=== PATIENT | female | born 1985 | race Caucasian/White ===

== ENCOUNTER 2018-04-01 08:15 | Observation (INO) ==
--- NOTE | 2018-04-01 08:43 | ED ---
HPI General Chief Complaint: Abdominal Pain Stated Complaint: abd pain Time Seen by Provider: 04/01/18 08:32 Source: patient Mode of arrival: ambulatory Limitations: no limitations History of Present Illness HPI narrative: 32 y/o female states yesterday at 130 she developed pain around her right mid abdomen and bellybutton area. She states movement makes the pain worse. She denies other modifying factors. She denies recurrent history of this. She denies any associated symptoms or other concurrent complaints. Quality is aching. Severity is moderate. She states her last menstrual cycle was about 7 years ago as she is on the Depo-Provera shot. Related Data Home Medications Medication Instructions Recorded Confirmed bupropion HCl 450 mg PO QAM 04/01/18 04/01/18 medroxyprogesterone [Depo-Provera] 150 mg IM [id number] 04/01/18 04/01/18 valacyclovir [Valtrex] 1,000 mg PO DAILY PRN 04/01/18 04/01/18 Allergies Allergy/AdvReac Type Severity Reaction Status Date / Time No Known Allergies Allergy Unknown Verified 04/01/18 08:20 Review of Systems ROS: all other systems reviewed are negative PMFSH History History Provided By: Patient (Notes prior but denies other surgeries or medical history) Medical History Medical History Depression (Acute) HTN (hypertension) (Acute) Surgical History Surgical History History of (Acute) History of tonsillectomy and adenoidectomy (Acute) Social History Social History Substance History: No History of Abuse Smoking Status: Current some day smoker Tobacco Type: Cigarettes How Often Do You Have a Drink Containing Alcohol: 2 to 3 times a week Recent Travel in [facility] within the Last 8 Weeks: No Recent Out of Country Travel within the Last 8 Weeks: No Exam Narrative Exam Narrative: GENERAL: 32 y/o female in no apparent distress SKIN: Focused skin assessment warm/dry. HEAD: Atraumatic. Normocephalic. EYES: Pupils equal and round. No scleral icterus. No injection or drainage. ENT: No nasal bleeding or discharge. Mucous membranes pink and moist. NECK: Trachea midline. No JVD. CARDIOVASCULAR: Regular rate and rhythm. RESPIRATORY: No accessory muscle use. Clear to auscultation. Breath sounds equal bilaterally. GASTROINTESTINAL: Abdomen soft, ttp to mid right upper lateral abdomen, nondistended. MUSCULOSKELETAL: No obvious deformities. No clubbing. No cyanosis. No edema. NEUROLOGICAL: Awake and alert. Motor grossly within normal limits. Normal speech. PSYCHIATRIC: Appropriate mood and affect; insight and judgment normal. Course Reevaluation(s) Reevaluation #1: patient updated and agrees to admit, given zosyn Consultations Consultation #1: dr alexandre thru OR nurse states to admit to medicine and keep npo Consultation #2: dr doyle agrees to admit Initial Documented Vital Signs Temperature 98.3 F 04/01/18 08:20 Pulse Rate 89 04/01/18 08:20 Respiratory Rate 16 04/01/18 08:20 Blood Pressure 128/84 04/01/18 08:20 Pulse Oximetry 98 04/01/18 08:20 Last Documented Vital Signs Temperature 98.3 F 04/01/18 08:20 Pulse Rate 76 04/01/18 10:15 Respiratory Rate 16 04/01/18 10:15 Blood Pressure 116/81 04/01/18 10:15 Pulse Oximetry 98 04/01/18 10:15 Medical Decision Making [facility] Narrative Medical decision making narrative: Will check blood work, urinalysis, test, CT scan and reevaluate Medical Screen Exam Complete: Yes Emergency Medical Condition: Yes Differential Diagnosis Differential Diagnosis: Cholecystitis, gastritis, stone, appendicitis Lab Data Lab results reviewed: Yes I reviewed the patient's lab results. Result diagrams: 04/01/18 09:00 04/01/18 09:00 POC Results POC Urine Results Negative Lab Results 04/01/18 04/01/18 04/01/18 Range/Units 08:40 09:00 09:00 CBC w Diff Auto diff final WBC 6.3 (4.0-11.0) th/mm3 RBC 4.80 (4.00-5.30) mil/mm3 Hgb 15.2 (11.6-15.3) gm/dL Hct 44.4 (35.0-46.0) % MCV 92.7 (80.0-100.0) fL MCH 31.8 (27.0-34.0) pg MCHC 34.3 (32.0-36.0) % RDW 12.4 (11.6-17.2) % Plt Count 272 (150-450) th/mm3 MPV 9.4 (7.0-11.0) fL Neut % (Auto) 62.7 (16.0-70.0) % Lymph % (Auto) 27.2 (9.0-44.0) % [place] % (Auto) 7.5 (0.0-8.0) % Eos % (Auto) 1.8 (0.0-4.0) % Baso % (Auto) 0.8 (0.0-2.0) % Neut # (Auto) 3.9 (1.8-7.7) th/mm3 Lymph # (Auto) 1.7 (1.0-4.8) th/mm3 [place] # (Auto) 0.5 (0.0-0.9) th/mm3 Eos # (Auto) 0.1 (0.0-0.4) th/mm3 Baso # (Auto) 0.1 (0.0-0.2) th/mm3 WBC Differential . Differential Comment . Sodium 141 (136-145) meq/L Potassium 4.4 (3.5-5.1) meq/L Chloride 108 H (98-107) meq/L Carbon Dioxide 23.0 (21.0-32.0) meq/L Anion Gap 10 (5-15) meq/L BUN 5 L (7-18) mg/dL Creatinine 0.73 (0.50-1.00) mg/dL Estimated GFR Greater than 89 (>89) mL/min Random Glucose 90 (74-106) mg/dL Calcium 8.8 (8.5-10.1) mg/dL Magnesium 2.3 (1.5-2.5) mg/dL Total Bilirubin 0.7 (0.2-1.0) mg/dL AST 17 (15-37) U/L ALT 33 (10-53) U/L Alkaline Phosphatase 78 (45-117) U/L Total Protein 7.2 (6.4-8.2) g/dL Albumin 3.6 (3.4-5.0) g/dL Lipase 72 L (73-393) U/L Ur Collection Type Clean catch Urine Color Yellow (Yellw/Straw) Urine Clarity Slightly cloudy (Clear) Urine pH 8.0 (5.0-8.5) Ur Specific [place] 1.015 (1.002-1.035) Urine Protein Negative (Neg-Trace) mg/dL Urine Glucose (UA) Negative (Negative) mg/dL Urine Ketones Negative (Negative) mg/dL Urine Occult Blood Negative (Negative) Urine Nitrate Negative (Negative) Urine Bilirubin Negative (Negative) Urine Urobilinogen 0.2 (Less than 2) mg/dL Ur Leukocyte Esterase Negative (Negative) Ur Squamous Epith Cells 6-10 H (0-5) /hpf Ur Microscopic Review Microscopic reviewed Urine Culture Comments Culture not ind Urine Collection Time 840 hours Imaging Data Attestation: I personally reviewed and interpreted this imaging study as follows : Radiologist's impression: Abdomen/Pelvis CT 04/01/18 08:40 CONCLUSION: 1. Prominent appendix with very minimal inflammatory changes about the tip. This could represent early appendicitis. 2. Lack of intravenous contrast does limit the sensitivity of this exam. Discharge Plan Discharge Disposition Patient Disposition: 30 Still Patient Discharge Details Diagnosis: Acute appendicitis Physicians Team ED Provider: Yoli Ruiz Primary Care Provider: Winnie Dumont Attending Provider: Chaz Doyle Other Providers: Joshua Alexandre Discharge Interventions Interventions: Vital Signs Last Done: 04/01/18 10:15 Status ED Status: Admitted Observation Patient
[2018-04-01 09:10] LABS: Bilirubin,Urine Negative (Negative); Clarity,Urine Slightly Cloudy (Clear); Color,Urine Yellow (Yellw/Straw); Glucose,Urine (UA) Negative (Negative); Leukocyte Esterase,Urine Negative (Negative); Nitrite,Urine Negative (Negative); Specific Gravity,Urine 1.015 (1.002-1.035); Urobilinogen,Urine 0.2 mg/dL (Less than 2)
[2018-04-01 09:11] LABS: Collection Time,Urine 840 hours
[2018-04-01 09:17] LABS: Baso # (Auto) 0.1 th/mm3 (0.0-0.2); Baso % (Auto) 0.8 % (0.0-2.0); Eos # (Auto) 0.1 th/mm3 (0.0-0.4); Eos % (Auto) 1.8 % (0.0-4.0); Hematocrit 44.4 % (35.0-46.0); Hemoglobin 15.2 gm/dL (11.6-15.3); Lymph # (Auto) 1.7 th/mm3 (1.0-4.8); Lymph % (Auto) 27.2 % (9.0-44.0); Mean Corpuscular HGB Conc 34.3 % (32.0-36.0); Mean Corpuscular Hemoglobin 31.8 pg (27.0-34.0); Mean Corpuscular Volume 92.7 fL (80.0-100.0); Mean Platelet Volume 9.4 fL (7.0-11.0); Mono # (Auto) 0.5 th/mm3 (0.0-0.9); Mono % (Auto) 7.5 % (0.0-8.0); Neut # (Auto) 3.9 th/mm3 (1.8-7.7); Neut % (Auto) 62.7 % (16.0-70.0); Platelet Count 272 th/mm3 (150-450); Red Cell Distribution Width 12.4 % (11.6-17.2); White Blood Count 6.3 th/mm3 (4.0-11.0)
--- NOTE | 2018-04-01 09:26 | CT ---
EXAM DATE: 04/01/2018 9:19 AM EDT AGE/SEX: 32 years / Female INDICATIONS: Right mid abdominal and periumbilical pain. CLINICAL DATA: This is the patient's initial encounter. Patient reports that signs and symptoms have been present for 1 day and indicates a pain score of 7/10. MEDICAL/SURGICAL HISTORY: Hypertension. section. RADIATION DOSE: 25.01 CTDI (mGy) ; Patient body habitus COMPARISON: No prior exams available for comparison. TECHNIQUE: Multiple contiguous axial images were obtained through the abdomen. Images were obtained using multiple row detector helical technique. Using automated exposure control and adjustment of the mA and/or kV according to patient size, radiation dose was kept as low as reasonably achievable to o btain optimal diagnostic quality images. DICOM format image data is available electronically for rev iew and comparison. FINDINGS: Lower Lungs: The visualized lower lungs are clear. Liver: The liver has a homogeneous density without space-occupying lesion. There is no dilation of th e biliary tree. Spleen: Homogeneous density without enlargement. Pancreas: Unremarkable without mass or calcification. Kidneys: Normal in size and shape. No evidence of mass or hydronephrosis. Adrenal Glands: Unremarkable. Aorta: The aorta and proximal iliac vessels are grossly unremarkable without aneurysmal dilation. Bowel/Mesentery: There is a prominent appendix. Very minimal inflammatory changes about the tip. Abdo daljit Wall: Intact. Retroperitoneum: No evidence of adenopathy in the retrocrural, para-aortic, or deep pelvic regions. Bladder: Contours are smooth. Reproductive Organs: No abnormal masses or calcifications seen. Inguinal: The inguinal region is unremarkable without evidence of adenopathy. Bony Structures: Unremarkable. CONCLUSION: 1. Prominent appendix with very minimal inflammatory changes about the tip. This could represent ear ly appendicitis. 2. Lack of intravenous contrast does limit the sensitivity of this exam. Electronically signed by: Paulino Lim MD 04/01/2018 9:25 AM EDT
[2018-04-01] MEDS ORDERED: Morphine Inj 4 MG/ML Vial IV.PUSH ONE (10:01)
[2018-04-01 10:17] LABS: Calcium 8.8 mg/dL (8.5-10.1)
[2018-04-01 10:18] LABS: Albumin 3.6 g/dL (3.4-5.0); Anion Gap 10 meq/L (5-15); Chloride 108 meq/L (98-107); Glucose,Random 90 mg/dL (74-106); Lipase 72 U/L (73-393); Magnesium 2.3 mg/dL (1.5-2.5); Potassium 4.4 meq/L (3.5-5.1); Sodium 141 meq/L (136-145)
[2018-04-01 10:21] LABS: Aspartate Aminotransferase 17 U/L (15-37); Glomerular Filtration Rate Greater Than 89 mL/min (>89)
[2018-04-01 10:22] LABS: Total Protein 7.2 g/dL (6.4-8.2)
[2018-04-01 10:24] LABS: Alkaline Phosphatase 78 U/L (45-117)
[2018-04-01 10:30] LABS: Blood Urea Nitrogen 5 mg/dL (7-18)
[2018-04-01] MEDS ORDERED: Piperacil/Tazo 3.375 GM Premix 50 ML IV.SIG ONE (10:30)
[2018-04-01 10:32] LABS: Alanine Aminotransferase 33 U/L (10-53)
[2018-04-01] MEDS ORDERED: Bisacodyl 10 MG Supp RECTAL PRN (10:57)
[2018-04-01] MEDS ORDERED: Acetaminophen 325 MG Tablet PO PRN (10:57)
[2018-04-01] MEDS: Sod Chloride 0.9% Inj 1,000 ML IV.CONT SCH ×2 (11:15→21:44)
--- NOTE | 2018-04-01 12:14 | P.HP ---
History of Present Illness Primary Care Physician: Winnie Dumont MD Chief Complaint: Abdominal pain History of Present Illness: This is a pleasant 32-year-old female patient with a known medical history of migraines and hypertension who presented to the ED with complaints of right lower quadrant abdominal pain. Patient states that yesterday afternoon around 1330 she developed a midepigastric abdominal pain that radiated to her right lower abdomen. She states that pain was worse with activity and movement. She denies any associated shortness of breath, diaphoresis or nausea or vomiting. She denies any changes to her bowels. She denies any black or bloody stools. Admit to chills and a low-grade fever of 99.0 at home. Patient visited her primary care doctor yesterday for complaints of more frequent migraines. Yesterday her PCP diagnosed her mild hypertension, per patient her BP was systolic in the 120's in the office, she was started on an antihypertensive medication she cannot recall the name of. She did not start her antihypertensive due to feeling sick over the course of the night. At the time of assessment, patient is tearful, states that she has a headache, abdominal pain is controlled. BP is stable. General surgery has been consulted. - Diagnosis (1) Acute appendicitis (2) Migraine Review of Systems All other systems reviewed negative except as stated in HPI PMFSH - History History Provided By: Patient - Medical History Medical History: Medical History (Last Reviewed 04/01/18 @ 13:10 by Jamila Peace) Depression HTN (hypertension) - Surgical History Surgical History: Surgical History (Last Reviewed 04/01/18 @ 13:10 by Jamila Peace) History of History of tonsillectomy and adenoidectomy - Family History Family History: Family History (Last Updated 04/01/18 @ 13:10 by Jamila Peace) Other Family history non-contributory - Social History I have reviewed the patient's Social History: Yes - Tobacco History Second Hand Smoke Exposure: No Tobacco Use In Past 30 Days: Yes Smoking Status: Light tobacco smoker Tobacco Type: Cigars - Alcohol History How Often Do You Have a Drink Containing Alcohol: 2 to 3 times a week - Substance Use History Substance History: No History of Abuse - Travel History Recent Travel in the [place] Within the Last 8 Weeks: No Recent Travel Out of the Country Within the Last 8 Weeks: No - Immunization History Tetanus Immunization: <5 Years Tetanus Immunization Year if Known: 2016 Medications and Allergies Active Medications: Active Medications Acetaminophen (Tylenol) 650 mg PO Q4H PRN PRN Reason: Temp > 100.4 Al Hydroxide/Mg Hydroxide (Milk Of Magnesia Liq) 30 ml PO Q12H PRN PRN Reason: Mild Constipation Bisacodyl (Dulcolax Supp) 10 mg RECTAL DAILY PRN PRN Reason: SEVERE CONSITIPATION Sodium Chloride (Ns Inj) 1,000 mls @ 100 mls/hr IV.CONT .Q10H LIAT Last Admin: 04/01/18 11:15 Dose: 100 mls/hr Lactulose (Lactulose Liq) 30 ml PO DAILY PRN PRN Reason: SEVERE CONSITIPATION Ondansetron HCl (Zofran Inj) 4 mg IV.PUSH Q6H PRN PRN Reason: NAUSEA OR VOMITING Sennosides (Senokot) 17.2 mg PO Q12H PRN PRN Reason: Moderate Constipation Sodium Chloride (Ns Flush) 2 ml IV.FLUSH PRN PRN PRN Reason: FLUSH AFTER USING IV ACCESS Allergies Allergy/AdvReac Type Severity Reaction Status Date / Time No Known Allergies Allergy Unknown Verified 04/01/18 08:20 Home Medications Medication Instructions Recorded Confirmed Type bupropion HCl 450 mg PO QAM 04/01/18 04/01/18 History medroxyprogesterone [Depo-Provera] 150 mg IM [id number] 04/01/18 04/01/18 History valacyclovir [Valtrex] 1,000 mg PO DAILY PRN 04/01/18 04/01/18 History Exam Vital signs: Vital Signs 04/01/18 08:20 04/01/18 09:47 04/01/18 10:15 Temperature 98.3 F Pulse Rate 89 87 76 Respiratory Rate 16 16 16 Blood Pressure 128/84 140/106 H 116/81 Pulse Oximetry 98 96 98 04/01/18 11:30 Temperature Pulse Rate 71 Respiratory Rate 16 Blood Pressure 123/82 Pulse Oximetry 98 Intake & Output 03/31/18 04/01/18 04/01/18 18:59 06:59 18:59 Intake Total 50 / 50 Balance 50 / 50 Weight 125 kg Intake: IV 50 / 50 Zosyn 3.375 GM Premix 50 ML @ 50 / 50 100 mls/hr IV.SIG ONCE ONE Rx#: [id number] Narrative: GENERAL: Well-developed, well-nourished patient with complaints of frontal headache. SKIN: Warm and dry. No rash. HEAD: Normocephalic. Atraumatic. EYES: Pupils equal and round. No scleral icterus. No injection or drainage. ENT: No nasal bleeding or discharge. Mucous membranes pink and moist. NECK: Supple. Trachea midline. CARDIOVASCULAR: Regular rate and rhythm. S1, S2 noted. No murmur appreciated. RESPIRATORY: No accessory muscle use. Clear to auscultation. Breath sounds equal bilaterally. GASTROINTESTINAL: Abdomen soft, nondistended. Normoactive bowel sounds x4. Mild tenderness to right lower quadrant to palpation. MUSCULOSKELETAL: No obvious deformities. Extremities without clubbing, cyanosis , or edema. NEUROLOGICAL: Awake and alert. No obvious cranial nerve deficits. Motor grossly within normal limits. 5/5 muscle strength in bilateral upper and lower extremities. Normal speech. PSYCHIATRIC: Appropriate mood and affect; insight and judgment normal. Results - Labs CBC & Chem 7: 04/01/18 09:00 04/01/18 09:00 Labs: Laboratory Results - last 24 hr 04/01/18 04/01/18 04/01/18 08:40 09:00 09:00 CBC w Diff Auto diff final WBC 6.3 RBC 4.80 Hgb 15.2 Hct 44.4 MCV 92.7 MCH 31.8 MCHC 34.3 RDW 12.4 Plt Count 272 MPV 9.4 Neut % (Auto) 62.7 Lymph % (Auto) 27.2 [place] % (Auto) 7.5 Eos % (Auto) 1.8 Baso % (Auto) 0.8 Neut # (Auto) 3.9 Lymph # (Auto) 1.7 [place] # (Auto) 0.5 Eos # (Auto) 0.1 Baso # (Auto) 0.1 WBC Differential . Differential Comment . Sodium 141 Potassium 4.4 Chloride 108 H Carbon Dioxide 23.0 Anion Gap 10 BUN 5 L Creatinine 0.73 Estimated GFR Greater than 89 Random Glucose 90 Calcium 8.8 Magnesium 2.3 Total Bilirubin 0.7 AST 17 ALT 33 Alkaline Phosphatase 78 Total Protein 7.2 Albumin 3.6 Lipase 72 L Ur Collection Type Clean catch Urine Color Yellow Urine Clarity Slightly cloudy Urine pH 8.0 Ur Specific [place] 1.015 Urine Protein Negative Urine Glucose (UA) Negative Urine Ketones Negative Urine Occult Blood Negative Urine Nitrate Negative Urine Bilirubin Negative Urine Urobilinogen 0.2 Ur Leukocyte Esterase Negative Ur Squamous Epith Cells 6-10 H Ur Microscopic Review Microscopic reviewed Urine Culture Comments Culture not ind Urine Collection Time 840 - Imaging Impressions Abdomen/Pelvis CT 04/01/18 08:40 CONCLUSION: 1. Prominent appendix with very minimal inflammatory changes about the tip. This could represent early appendicitis. 2. Lack of intravenous contrast does limit the sensitivity of this exam. Caprini VTE Risk Assessment Caprini VTE Risk Assessment: No/Low Risk (score <= 1) Caprini Risk Assessment Model: Point Value = 1 Point Value = 2 Point Value = 3 Point Value = 5 Age 41-60 Minor surgery BMI > 25 kg/m2 Swollen legs Varicose veins or History of unexplained or recurrent spontaneous Oral contraceptives or hormone replacement Sepsis (< 1 month) Serious lung disease, including pneumonia (< 1 month) Abnormal pulmonary function Acute myocardial infarction Congestive heart failure (< 1 month) History of inflammatory bowel disease Medical patient at bed rest Age 61-74 Arthroscopic surgery Major open surgery (> 45 min) Laparoscopic surgery (> 45 min) Malignancy Confined to bed (> 72 hours) Immobilizing plaster cast Central venous access Age >= 75 History of VTE Family history of VTE Factor V Leiden Prothrombin [id number] Lupus anticoagulant Anticardiolipin antibodies Elevated serum homocysteine Heparin-induced thrombocytopenia Other congenital or acquired thrombophilia Stroke (< 1 month) Elective arthroplasty Hip, pelvis, or leg fracture Acute spinal cord injury (< 1 month) Prophylaxis Regimen: Total Risk Factor Score Risk Level Prophylaxis Regimen 0-1 Low Early ambulation 2 Moderate Order ONE of the following: *Sequential Compression Device (SCD) *Heparin 5000 units SQ BID 3-4 Higher Order ONE of the following medications: *Heparin 5000 units SQ TID *Enoxaparin/Lovenox 40 mg SQ daily (WT < 150 kg, CrCl > 30 mL/min) *Enoxaparin/Lovenox 30 mg SQ daily (WT < 150 kg, CrCl > 10-29 mL/min) *Enoxaparin/Lovenox 30 mg SQ BID (WT < 150 kg, CrCl > 30 mL/min) AND/OR *Sequential Compression Device (SCD) 5 or more Highest Order ONE of the following medications: *Heparin 5000 units SQ TID (Preferred with Epidurals) *Enoxaparin/Lovenox 40 mg SQ daily (WT < 150 kg, CrCl > 30 mL/min) *Enoxaparin/Lovenox 30 mg SQ daily (WT < 150 kg, CrCl > 10-29 mL/min) *Enoxaparin/Lovenox 30 mg SQ BID (WT < 150 kg, CrCl > 30 mL/min) AND *Sequential Compression Device (SCD) Assessment and Plan - Assessment (1) Acute appendicitis Code(s): K35.80 - Unspecified acute appendicitis Status: Acute (2) Migraine Code(s): G43.909 - Migraine, unspecified, not intractable, without status migrainosus Status: Acute - Plan This is a 32-year-old who presented with: Acute appendicitis -Patient complaint of abdominal pain x 1 day. -Abdominal/pelvis CT reviewed and showing possibility of acute appendicitis. -Morphine PRN available as needed per pain scale. -General surgery has been consulted, may undergo appendectomy this afternoon. Keep NPO. -Was given Zosyn IV in ED. Will continue for now. Afebrile. No leukocytosis. -Supportive care. Migraine headaches -Patient states she has had headaches on and off for the past few months. Acetaminophen not effective for the pain. -Has a headache at the present time. Will start on Topamax. -Continue to monitor. Recent diagnosis of hypertension -Has been prescribed a medication yesterday for diagnosis of hypertension. -Patient does not recall name of medication and she did not fill the prescription yet. -BP trends have been stable since presentation, will continue to monitor. DVT Prophylaxis: SCDs. Ambulation. Hold chemical prophylaxis secondary to possibility of surgery.
[2018-04-01] MEDS ORDERED: Morphine Sulfate Inj 2 MG/ML Vial IV.PUSH PRN (13:04)
[2018-04-01] MEDS: Topiramate 25 MG Tablet PO SCH (15:06)
[2018-04-01] MEDS: Piperacil/Tazo 3.375 GM Premix 50 ML IV.SIG SCH ×2 (15:06→21:44)
[2018-04-01] MEDS ORDERED: Bupivacaine/Epinephrine Inj 0.25% 50 ML Vial ONE (16:06)
[2018-04-01] MEDS ORDERED: Chlorhexidine Gluconate 2% 1 Pack (2 Cloths) TOPICAL ONE (16:17)
[2018-04-01] MEDS ORDERED: Metoprolol Tartrate 25 MG Tablet PO ONE (16:17)
[2018-04-01] MEDS ORDERED: Sodium Chlor 0.9% Inj 500 ML IV.SIG SCH (17:00)
--- NOTE | 2018-04-01 18:18 | P.CONGS ---
[facility] Gen Surgery Consult Note Consult date: 04/01/18 Reason for consult: abdominal pain Requesting physician: Yoli Ruiz Narrative: This is a 32 year old female with a past medical history of hypertension who presented to the ED today with complaints of abdominal pain. The patient states she was in her usual state of health until about 1PM yesterday. She reports associated nausea. She reports associated chills. A CT abdomen/pelvis was obtained which shows possible early appendicitis. Her WBC is normal. A General Surgery consultation has been requested. Review of Systems All other systems reviewed negative except as stated in [facility] PMF - History History Provided By: Patient - Medical History Medical History: Medical History (Last Reviewed 04/01/18 @ 18:13 by LUIS Curry) Depression HTN (hypertension) - Surgical History Surgical History: Surgical History (Last Reviewed 04/01/18 @ 18:13 by LUIS Curry) History of History of tonsillectomy and adenoidectomy - Family History Family History: Family History (Last Updated 04/01/18 @ 13:10 by Jamila Peace) Other Family history non-contributory - Tobacco History Second Hand Smoke Exposure: No Tobacco Use In Past 30 Days: Yes Smoking Status: Light tobacco smoker Tobacco Type: Cigars - Alcohol History How Often Do You Have a Drink Containing Alcohol: 2 to 3 times a week - Substance Use History Substance History: No History of Abuse - Travel History Recent Travel in the [place] Within the Last 8 Weeks: No Recent Travel Out of the Country Within the Last 8 Weeks: No - Immunization History Tetanus Immunization: <5 Years Tetanus Immunization Year if Known: 2017 Medications and Allergies Allergies Allergy/AdvReac Type Severity Reaction Status Date / Time No Known Allergies Allergy Unknown Verified 04/01/18 08:20 Home Medications Medication Instructions Recorded Confirmed Type bupropion HCl 450 mg PO QAM 04/01/18 04/01/18 History medroxyprogesterone [Depo-Provera] 150 mg IM [id number] 04/01/18 04/01/18 History valacyclovir [Valtrex] 1,000 mg PO DAILY PRN 04/01/18 04/01/18 History Active Medications: Active Medications Acetaminophen (Tylenol) 650 mg PO Q4H PRN PRN Reason: Temp > 100.4 Al Hydroxide/Mg Hydroxide (Milk Of Magnesia Liq) 30 ml PO Q12H PRN PRN Reason: Mild Constipation Bisacodyl (Dulcolax Supp) 10 mg RECTAL DAILY PRN PRN Reason: SEVERE CONSITIPATION Sodium Chloride (Ns Inj) 1,000 mls @ 100 mls/hr IV.CONT .Q10H [facility] Last Admin: 04/01/18 11:15 Dose: 100 mls/hr Piperacillin/Tazobactam/Dextrose (Zosyn 3.375 Gm Premix) 50 mls @ 100 mls/hr IV.SIG Q6H [facility] Last Infusion: 04/01/18 15:46 Dose: Infused Lactated Ringer's (Lr 1000 Ml Inj) 1,000 mls @ 30 mls/hr IV.SIG .Q24H [facility] Stop: 04/02/18 16:29 Last Admin: 04/01/18 16:24 Dose: 30 mls/hr Sodium Chloride (Ns Inj) 500 mls @ 30 mls/hr IV.SIG .Q10H [facility] Lactulose (Lactulose Liq) 30 ml PO DAILY PRN PRN Reason: SEVERE CONSITIPATION Morphine Sulfate (Morphine Inj) 2 mg IV.PUSH Q4H PRN PRN Reason: BREAKTHROUGH PAIN Ondansetron HCl (Zofran Inj) 4 mg IV.PUSH Q6H PRN PRN Reason: NAUSEA OR VOMITING Sennosides (Senokot) 17.2 mg PO Q12H PRN PRN Reason: Moderate Constipation Sodium Chloride (Ns Flush) 2 ml IV.FLUSH PRN PRN PRN Reason: FLUSH AFTER USING IV ACCESS Topiramate (Topamax) 25 mg PO DAILY [facility] Last Admin: 04/01/18 15:06 Dose: 25 mg Exam Vital signs: Vital Signs 04/01/18 08:20 04/01/18 09:47 04/01/18 10:15 Temperature 98.3 F Pulse Rate 89 87 76 Respiratory Rate 16 16 16 Blood Pressure 128/84 140/106 H 116/81 Pulse Oximetry 98 96 98 04/01/18 11:30 04/01/18 12:00 04/01/18 16:20 Temperature 97.5 F L 98.0 F Pulse Rate 71 78 72 Respiratory Rate 16 17 18 Blood Pressure 123/82 136/92 H 125/89 Pulse Oximetry 98 96 99 Intake & Output 03/31/18 04/01/18 04/01/18 18:59 06:59 18:59 Intake Total 100 / 100 Balance 100 / 100 Weight 124.4 kg Intake: IV 100 / 100 Zosyn 3.375 GM Premix 50 ML @ 100 / 100 100 mls/hr IV.SIG Q6H [facility] Rx#: [id number] Other: Weight On Admission 124.4 kg Narrative: GENERAL: Very nice 32 year old female appearing acutely ill resting in bed. SKIN: Warm and dry. HEAD: Atraumatic. Normocephalic. EYES: Pupils equal and round. No scleral icterus. No injection or drainage. ENT: No nasal bleeding or discharge. Mucous membranes pink and moist. NECK: Trachea midline. CARDIOVASCULAR: Regular rate and rhythm. RESPIRATORY: No accessory muscle use. Clear to auscultation. Breath sounds equal bilaterally. GASTROINTESTINAL: Abdomen soft, nondistended. RLQ and periumbilical tenderness to palpation. She has a well healed low transverse scar. MUSCULOSKELETAL: Extremities without clubbing, cyanosis, or edema. No obvious deformities. NEUROLOGICAL: Awake and alert. No obvious cranial nerve deficits. Motor grossly within normal limits. Five out of 5 muscle strength in the arms and legs. Normal speech. PSYCHIATRIC: Appropriate mood and affect; insight and judgment normal. - Routine Abdominal Exam Present: soft, tenderness (right mid to lower abdomen) Results - Labs 04/01/18 09:00 04/01/18 09:00 Laboratory Results CBC w Diff Auto diff final 04/01/18 09:00 WBC 6.3 th/mm3 (4.0-11.0) 04/01/18 09:00 RBC 4.80 mil/mm3 (4.00-5.30) 04/01/18 09:00 Hgb 15.2 gm/dL (11.6-15.3) 04/01/18 09:00 Hct 44.4 % (35.0-46.0) 04/01/18 09:00 MCV 92.7 fL (80.0-100.0) 04/01/18 09:00 MCH 31.8 pg (27.0-34.0) 04/01/18 09:00 MCHC 34.3 % (32.0-36.0) 04/01/18 09:00 RDW 12.4 % (11.6-17.2) 04/01/18 09:00 Plt Count 272 th/mm3 (150-450) 04/01/18 09:00 MPV 9.4 fL (7.0-11.0) 04/01/18 09:00 Neut % (Auto) 62.7 % (16.0-70.0) 04/01/18 09:00 Lymph % (Auto) 27.2 % (9.0-44.0) 04/01/18 09:00 [place] % (Auto) 7.5 % (0.0-8.0) 04/01/18 09:00 Eos % (Auto) 1.8 % (0.0-4.0) 04/01/18 09:00 Baso % (Auto) 0.8 % (0.0-2.0) 04/01/18 09:00 Neut # (Auto) 3.9 th/mm3 (1.8-7.7) 04/01/18 09:00 Lymph # (Auto) 1.7 th/mm3 (1.0-4.8) 04/01/18 09:00 [place] # (Auto) 0.5 th/mm3 (0.0-0.9) 04/01/18 09:00 Eos # (Auto) 0.1 th/mm3 (0.0-0.4) 04/01/18 09:00 Baso # (Auto) 0.1 th/mm3 (0.0-0.2) 04/01/18 09:00 WBC Differential . 04/01/18 09:00 Differential Comment . 04/01/18 09:00 Sodium 141 meq/L (136-145) 04/01/18 09:00 Potassium 4.4 meq/L (3.5-5.1) 04/01/18 09:00 Chloride 108 meq/L (98-107) H 04/01/18 09:00 Carbon Dioxide 23.0 meq/L (21.0-32.0) 04/01/18 09:00 Anion Gap 10 meq/L (5-15) 04/01/18 09:00 BUN 5 mg/dL (7-18) L 04/01/18 09:00 Creatinine 0.73 mg/dL (0.50-1.00) 04/01/18 09:00 Estimated GFR Greater than 89 mL/min (>89) 04/01/18 09:00 Random Glucose 90 mg/dL (74-106) 04/01/18 09:00 Calcium 8.8 mg/dL (8.5-10.1) 04/01/18 09:00 Magnesium 2.3 mg/dL (1.5-2.5) 04/01/18 09:00 Total Bilirubin 0.7 mg/dL (0.2-1.0) 04/01/18 09:00 AST 17 U/L (15-37) 04/01/18 09:00 ALT 33 U/L (10-53) 04/01/18 09:00 Alkaline Phosphatase 78 U/L (45-117) 04/01/18 09:00 Total Protein 7.2 g/dL (6.4-8.2) 04/01/18 09:00 Albumin 3.6 g/dL (3.4-5.0) 04/01/18 09:00 Lipase 72 U/L (73-393) L 04/01/18 09:00 Ur Collection Type Clean catch 04/01/18 08:40 Urine Color Yellow (Yellw/Straw) 04/01/18 08:40 Urine Clarity Slightly cloudy (Clear) 04/01/18 08:40 Urine pH 8.0 (5.0-8.5) 04/01/18 08:40 Ur Specific [place] 1.015 (1.002-1.035) 04/01/18 08:40 Urine Protein Negative mg/dL (Neg-Trace) 04/01/18 08:40 Urine Glucose (UA) Negative mg/dL (Negative) 04/01/18 08:40 Urine Ketones Negative mg/dL (Negative) 04/01/18 08:40 Urine Occult Blood Negative (Negative) 04/01/18 08:40 Urine Nitrate Negative (Negative) 04/01/18 08:40 Urine Bilirubin Negative (Negative) 04/01/18 08:40 Urine Urobilinogen 0.2 mg/dL (Less than 2) 04/01/18 08:40 Ur Leukocyte Esterase Negative (Negative) 04/01/18 08:40 Ur Squamous Epith Cells 6-10 /hpf (0-5) H 04/01/18 08:40 Ur Microscopic Review Microscopic reviewed 04/01/18 08:40 Urine Culture Comments Culture not ind 04/01/18 08:40 Urine Collection Time 840 hours 04/01/18 08:40 Impressions Abdomen/Pelvis CT 04/01/18 08:40 CONCLUSION: 1. Prominent appendix with very minimal inflammatory changes about the tip. This could represent early appendicitis. 2. Lack of intravenous contrast does limit the sensitivity of this exam. - Imaging Imaging: ITS Impressions Abdomen/Pelvis CT 04/01/18 08:40 CONCLUSION: 1. Prominent appendix with very minimal inflammatory changes about the tip. This could represent early appendicitis. 2. Lack of intravenous contrast does limit the sensitivity of this exam. CT scan - abdomen: report reviewed, image reviewed Assessment and Plan - Assessment (1) Acute appendicitis Code(s): K35.80 - Unspecified acute appendicitis Status: Acute Plan: 32 year old female with acute appendicitis -Plan for OR this evening -NPO -IVF -Continue Zosyn -Obtain consents -Explained procedure including risks and benefits; All questions answered -Thank you for this consult; We will continue to follow Acute appendicitis by exam and imaging To OR this evening The exam, history, and the medical decision-making described in the above note were completed with the assistance of the mid-level provider. I reviewed and agree with the findings presented. I attest that I had a [id number] encounter with the patient on the same day, and personally performed and documented my assessment and findings in the medical record. - Plan Discussed Condition With: Dr. Baldomero Benoit
[2018-04-01] MEDS ORDERED: fentaNYL Citrate Inj 250 MCG/5 ML Ampul ONE (18:25)
[2018-04-01] MEDS ORDERED: Famotidine PF Inj 20 MG/2 ML Vial ONE (18:37)
[2018-04-01] MEDS ORDERED: Neostigmine Inj 5 MG/5 ML Syringe IV.PUSH ONE (19:49)
[2018-04-01] MEDS ORDERED: Ketorolac Inj 30 MG/ML (IVP) Vial IV.PUSH ONE (19:49)
[2018-04-01] MEDS ORDERED: Succinylcholine Inj 100 MG/5 ML Syringe IV.PUSH ONE (19:49)
[2018-04-01] MEDS ORDERED: Morphine Inj 4 MG/ML Vial ONE ×2 (20:39→20:57)
--- NOTE | 2018-04-01 20:39 | P.OP ---
- Preoperative Diagnosis (1) Acute appendicitis - Postoperative Diagnosis (1) Acute appendicitis with localized peritonitis without perforation Date of procedure: 04/01/18 Procedure: Laparoscopic appendectomy Anesthesia: NISHANT Surgeon: Joshua Alexandre MD Railroad Detective: Ke Roland CFA Estimated blood loss (mL): 10 IV fluids (mL): 1,000 Pathology: other (Appendix to pathology) Operation and Findings: Patient was taken to the operating room and placed on the operating table in the supine position. After an adequate level of general endotracheal anesthesia was achieved the abdomen was prepped and draped in the usual fashion. Time-out was taken, confirming the correct patient, site, and procedure to be performed. Skin and subcutaneous tissue was infiltrated with local anesthetic and an incision made in the umbilicus and carried through the fascia sharply. The peritoneal cavity was directly visualized. A 12 mm balloon trocar was inserted and the balloon inflated. The abdomen was insufflated. The patient was placed in Trendelenburg position. A 30 degree 5 mm laparoscope was inserted. Two 5 mm trocars were then placed, with the first in the right lower quadrant and the second in the suprapubic region. Both entered the abdominal cavity under direct vision uneventfully. The appendix was then rotated up into view and was seen to be grossly inflamed, especially in the distal one third. The mesoappendix was divided from the appendix with the harmonic scalpel. A 0 PDS Endoloop was then slipped over the appendix and cinched down at the base. The appendix was divided 1 cm distal to the Endoloop with the harmonic scalpel. The appendix was placed into a Endo Catch device and removed via the umbilical port while observing via the right lower quadrant 5 mm trocar site. The specimen was passed off the table. The right lower quadrant was re-visualized. All irrigation was aspirated. The appendiceal stump and mesoappendix were seen to be clean and dry. Photographs were taken of the appendiceal stump as well as left and right ovaries which appeared normal. With hemostasis assured, insufflation was discontinued. The right lower quadrant and suprapubic trocars were removed under direct vision. No bleeding was noted from the trocar sites during desufflation. The laparoscope and umbilical port were then removed. The fascia was closed in the umbilicus with 0 Vicryl suture in both a simple interrupted and [id number] fashion. The remaining local anesthetic was injected into each of the trocar sites. The skin was closed at each of the trocar sites with 4-0 Vicryl in an interrupted buried fashion. Sponge and needle counts were reported to be correct. The trocar sites were dressed with Steri-Strips. Patient was extubated and taken back to the recovery room in stable condition.
[2018-04-02] MEDS: Piperacil/Tazo 3.375 GM Premix 50 ML IV.SIG SCH ×2 (03:24→09:47)
[2018-04-02] MEDS: Sod Chloride 0.9% Inj 1,000 ML IV.CONT SCH (06:07)
[2018-04-02 07:41] LABS: Chloride 106 meq/L (98-107); Potassium 4.2 meq/L (3.5-5.1); Sodium 140 meq/L (136-145)
[2018-04-02 07:45] LABS: Anion Gap 10 meq/L (5-15); Blood Urea Nitrogen 6 mg/dL (7-18); Calcium 8.5 mg/dL (8.5-10.1); Glucose,Random 123 mg/dL (74-106)
[2018-04-02 07:49] LABS: Glomerular Filtration Rate Greater Than 89 mL/min (>89)
[2018-04-02 07:52] LABS: Baso # (Auto) 0.1 th/mm3 (0.0-0.2); Baso % (Auto) 0.6 % (0.0-2.0); Hematocrit 42.3 % (35.0-46.0); Hemoglobin 13.9 gm/dL (11.6-15.3); Lymph # (Auto) 0.9 th/mm3 (1.0-4.8); Lymph % (Auto) 8.3 % (9.0-44.0); Mean Corpuscular Hemoglobin 30.5 pg (27.0-34.0); Mean Corpuscular Volume 92.5 fL (80.0-100.0); Mean Platelet Volume 11.2 fL (7.0-11.0); Mono # (Auto) 0.2 th/mm3 (0.0-0.9); Mono % (Auto) 1.5 % (0.0-8.0); Neut # (Auto) 9.1 th/mm3 (1.8-7.7); Neut % (Auto) 89.6 % (16.0-70.0); Platelet Count 266 th/mm3 (150-450); Red Blood Count 4.57 mil/mm3 (4.00-5.30); Red Cell Distribution Width 12.3 % (11.6-17.2); White Blood Count 10.3 th/mm3 (4.0-11.0)
--- NOTE | 2018-04-02 08:06 | P.PNIM ---
Subjective Interval history: Follow up appendectomy. Patient seen and examined, lying in bed comfortably eating well without any nausea, vomiting or abdominal pain. Incision clean dry and intact. No drainage, or no pain to palpation. Headache has improved. VSS. Afebrile. No leukocytosis. Will DC home per clearance from surgery. See DC plan. Physical Exam Vital signs: Vital Signs 04/01/18 08:20 04/01/18 09:47 04/01/18 10:15 Temperature 98.3 F Pulse Rate 89 87 76 Respiratory Rate 16 16 16 Blood Pressure 128/84 140/106 H 116/81 Pulse Oximetry 98 96 98 04/01/18 11:30 04/01/18 12:00 04/01/18 16:20 Temperature 97.5 F L 98.0 F Pulse Rate 71 78 72 Respiratory Rate 16 17 18 Blood Pressure 123/82 136/92 H 125/89 Pulse Oximetry 98 96 99 04/01/18 20:35 04/01/18 20:40 04/01/18 21:00 Temperature 98.0 F 97.9 F Pulse Rate 102 H 77 72 Respiratory Rate 16 16 16 Blood Pressure 148/85 H 143/77 H 143/79 H Pulse Oximetry 96 98 04/01/18 21:15 04/01/18 21:35 04/02/18 00:00 Temperature 97.9 F 96.3 F L 96.7 F L Pulse Rate 65 63 60 Respiratory Rate 16 18 16 Blood Pressure 142/88 H 146/80 H 108/72 Pulse Oximetry 99 99 04/02/18 04:00 Temperature 96.6 F L Pulse Rate 68 Respiratory Rate 18 Blood Pressure 112/74 Pulse Oximetry 99 Intake & Output 04/01/18 04/02/18 04/02/18 18:59 06:59 18:59 Intake Total 100 / 100 2810 / 2810 Output Total 10 / 10 Balance 100 / 100 2800 / 2800 Weight 124.4 kg 125.3 kg Intake: IV 100 / 100 2300 / 2300 NS Inj 1,000 ML @ 100 mls/hr IV 1200 / 1200 .CONT .Q10H [facility] Rx#:[id number] LR 1000 mL Inj 1,000 ML @ 30 1000 / 1000 mls/hr IV.SIG .Q24H [facility] Rx#: [id number] Zosyn 3.375 GM Premix 50 ML @ 100 / 100 100 / 100 100 mls/hr IV.SIG Q6H [facility] Rx#: [id number] Oral 0 / 0 510 / 510 Output: Estimated Blood Loss Other: # Voids 3 2 # Bowel Movements 0 Weight On Admission 124.4 kg Narrative: GENERAL: Very nice 32 year old female resting in bed comfortably. SKIN: Warm and dry. HEAD: Atraumatic. Normocephalic. EYES: Pupils equal and round. No scleral icterus. No injection or drainage. ENT: No nasal bleeding or discharge. Mucous membranes pink and moist. NECK: Trachea midline. CARDIOVASCULAR: Regular rate and rhythm. RESPIRATORY: No accessory muscle use. Clear to auscultation. Breath sounds equal bilaterally. GASTROINTESTINAL: Abdomen soft, nondistended. No pain to palpation. Three incisions noted with steri strips in place, c/d/i, no erythema or drainage. MUSCULOSKELETAL: Extremities without clubbing, cyanosis, or edema. No obvious deformities. NEUROLOGICAL: Awake and alert. No obvious cranial nerve deficits. Motor grossly within normal limits. Five out of 5 muscle strength in the arms and legs. Normal speech. PSYCHIATRIC: Appropriate mood and affect; insight and judgment normal. Results - Labs CBC & Chem 7: 04/02/18 06:16 04/02/18 06:16 Laboratory Results - last 24 hr 04/01/18 04/01/18 04/01/18 08:40 09:00 09:00 CBC w Diff Auto diff final WBC 6.3 RBC 4.80 Hgb 15.2 Hct 44.4 MCV 92.7 MCH 31.8 MCHC 34.3 RDW 12.4 Plt Count 272 MPV 9.4 Neut % (Auto) 62.7 Lymph % (Auto) 27.2 [place] % (Auto) 7.5 Eos % (Auto) 1.8 Baso % (Auto) 0.8 Neut # (Auto) 3.9 Lymph # (Auto) 1.7 [place] # (Auto) 0.5 Eos # (Auto) 0.1 Baso # (Auto) 0.1 WBC Differential . Differential Comment . Sodium 141 Potassium 4.4 Chloride 108 H Carbon Dioxide 23.0 Anion Gap 10 BUN 5 L Creatinine 0.73 Estimated GFR Greater than 89 Random Glucose 90 Calcium 8.8 Magnesium 2.3 Total Bilirubin 0.7 AST 17 ALT 33 Alkaline Phosphatase 78 Total Protein 7.2 Albumin 3.6 Lipase 72 L Ur Collection Type Clean catch Urine Color Yellow Urine Clarity Slightly cloudy Urine pH 8.0 Ur Specific [place] 1.015 Urine Protein Negative Urine Glucose (UA) Negative Urine Ketones Negative Urine Occult Blood Negative Urine Nitrate Negative Urine Bilirubin Negative Urine Urobilinogen 0.2 Ur Leukocyte Esterase Negative Ur Squamous Epith Cells 6-10 H Ur Microscopic Review Microscopic reviewed Urine Culture Comments Culture not ind Urine Collection Time 840 04/02/18 04/02/18 06:16 06:16 CBC w Diff Auto diff final WBC 10.3 D RBC 4.57 Hgb 13.9 Hct 42.3 MCV 92.5 MCH 30.5 MCHC 33.0 RDW 12.3 Plt Count 266 MPV 11.2 H Neut % (Auto) 89.6 H Lymph % (Auto) 8.3 L [place] % (Auto) 1.5 Eos % (Auto) 0.0 Baso % (Auto) 0.6 Neut # (Auto) 9.1 H Lymph # (Auto) 0.9 L [place] # (Auto) 0.2 Eos # (Auto) 0.0 Baso # (Auto) 0.1 WBC Differential . Differential Comment . Sodium 140 Potassium 4.2 Chloride 106 Carbon Dioxide 24.0 Anion Gap 10 BUN 6 L Creatinine 0.68 Estimated GFR Greater than 89 Random Glucose 123 H Calcium 8.5 Magnesium Total Bilirubin AST ALT Alkaline Phosphatase Total Protein Albumin Lipase Ur Collection Type Urine Color Urine Clarity Urine pH Ur Specific [place] Urine Protein Urine Glucose (UA) Urine Ketones Urine Occult Blood Urine Nitrate Urine Bilirubin Urine Urobilinogen Ur Leukocyte Esterase Ur Squamous Epith Cells Ur Microscopic Review Urine Culture Comments Urine Collection Time - Imaging Impressions Abdomen/Pelvis CT 04/01/18 08:40 CONCLUSION: 1. Prominent appendix with very minimal inflammatory changes about the tip. This could represent early appendicitis. 2. Lack of intravenous contrast does limit the sensitivity of this exam. Assessment and Plan - Assessment (1) Acute appendicitis Code(s): K35.80 - Unspecified acute appendicitis Status: Acute (2) Migraine Code(s): G43.909 - Migraine, unspecified, not intractable, without status migrainosus Status: Acute - Plan This is a 32-year-old who presented with: Acute appendicitis. Improved. -Patient complaint of abdominal pain x 1 day. -Abdominal/pelvis CT reviewed and showing possibility of acute appendicitis. -Morphine PRN available as needed per pain scale. Pain is well controlled without IV need. -General surgery has been consulted, underwent appendectomy last evening. -Doing well. Tolerating PO intake without any n/v/abdominal pain. - Surgery has cleared patient for dc. RX per orders. Migraine headaches. Improved. -Patient states she has had headaches on and off for the past few months. Acetaminophen not effective for the pain. -States she will follow up with PCP. Has an MRI scheduled next week. Does not want any medication for headache. Recent diagnosis of hypertension -Has been prescribed a medication yesterday for diagnosis of hypertension. -Patient does not recall name of medication and she did not fill the prescription yet. -BP trends have been stable since presentation, highest systolic in the 140's. -Encouraged to continue BP medication on dc. DC home. Activity as tolerated. Diet as tolerated. RX per DC plan. Follow up pcp.
[2018-04-02 08:19] VITALS: BP 109/67; PULSE 62; RESP 20; TEMP 96.8; O2SAT 96
[2018-04-02] MEDS: Topiramate 25 MG Tablet PO SCH ×2 (08:33→08:37)
== END 2018-04-02 12:00 | disposition home or self-care (01) ==
LOC: PHED 08:15 → PHEDA 08:15 → PH3 11:35
PROVIDERS: ADMIT Internal Medicine; ATTEND Internal Medicine
PROC: LAPAPPY (ICD-10-PCS; 2018-04-01 19:29)